=== PATIENT | male | born 1935 | race Native Hawaiian/Other Pacific Islander ===

== ENCOUNTER 2016-08-02 12:05 | Inpatient (IN) | payer OTHER ==
[~2016-08-02] VITALS: Ht 165.1 cm; Wt 69.4 kg
[~2016-08-02 12:05] MED LIST: ASA LOW STR81 MG PO; CLONIDINE0.2 MG PO; HYZAAR1 TA2 PO; SIMV20TA2 PO
[2016-08-02 13:57] VITALS: BP 174/80; TEMP 98.2; Ht 165.1 cm; Wt 69.4 kg
[2016-08-02] MEDS ORDERED: CLONIDINE HCL0.1 MG PO (14:10)
[2016-08-02 14:32] LABS: PLATELET COUNT 347 K/uL (142-355)
[2016-08-02 14:43] LABS: POTASSIUM 2.8 mmol/L (3.6-5.2)
[2016-08-02 16:00] VITALS: BP 194/84; TEMP 97.9
[2016-08-02 20:00] VITALS: BP 208/96; TEMP 98.8
[2016-08-02 22:06] VITALS: BP 192/91
[2016-08-03] VITALS: BP 189/90; TEMP 98.8
[2016-08-03 05:18] LABS: POTASSIUM 3.6 mmol/L (3.6-5.2); SODIUM 131 mmol/L (136-145)
[2016-08-03 05:29] VITALS: BP 180/84; TEMP 98.8
[2016-08-03 05:38] LABS: PLATELET COUNT 303 K/uL (142-355)
[2016-08-03 08:00] VITALS: BP 188/90; TEMP 98.1
[2016-08-03 12:00] VITALS: BP 181/76; TEMP 97.9
[2016-08-03 16:00] VITALS: BP 190/88; TEMP 97.3
[2016-08-03 20:00] VITALS: BP 200/110; TEMP 98.2
== END 2016-08-04 00:25 | disposition short-term general hospital (02) | DRG 603 ==
LOC: MED/SURG 12:05
PROVIDERS: Emergency Medicine; ADMIT Internal Medicine
DX: L03.113 Cellulitis of right upper limb (principal); I10 Essential (primary) hypertension; M65.841 Other synovitis and tenosynovitis, right hand; Z85.46 Personal history of malignant neoplasm of prostate
CPT/HCPCS: 36415; 80053; 85027; 85379; 85651; 86140; 90471; 90715; A9576; J1644

== ENCOUNTER 2016-08-04 00:31 | Outpatient (CLI) | payer OTHER ==
[~2016-08-04 00:31] MED LIST changes: +CLONIDINE HCL0.1 MG PO
== END 2016-08-04 02:32 | disposition short-term general hospital (02) ==
LOC: AMB 00:31
DX: L03.113 Cellulitis of right upper limb (principal); I10 Essential (primary) hypertension; Z85.46 Personal history of malignant neoplasm of prostate
CPT/HCPCS: A0425; A0427

== ENCOUNTER 2018-08-21 12:27 | Emergency (ER) | payer OTHER ==
[~2018-08-21] VITALS: Ht 165.1 cm; Wt 70.3 kg
[2018-08-21] MEDS ORDERED: CARV25TA PO (13:12)
[2018-08-21] MEDS ORDERED: COZAAR100 MG PO (13:13)
[2018-08-21] MEDS ORDERED: AMLODIPINE BESYLATE PO (13:13)
[2018-08-21 14:10] LABS: PLATELET COUNT 249 K/uL (142-355)
[2018-08-21 14:13] LABS: POTASSIUM 4.5 mmol/L (3.6-5.2)
[2018-08-21 14:26] LABS: PARTIAL THROMBOPLASTIN TIME 23.9 SECONDS (24.5-33.6)
[2018-08-21 15:30] VITALS: BP 158/76; TEMP 97.9
== END 2018-08-21 15:30 | disposition short-term general hospital (02) ==
LOC: ED 12:27
PROVIDERS: Emergency Medicine
DX: R33.8 Other retention of urine (principal); R79.1 Abnormal coagulation profile
CPT/HCPCS: 36415; 51702; 80053; 85027; 85610; 85730; 99283

== ENCOUNTER 2018-08-21 15:44 | Outpatient (CLI) | payer OTHER ==
[~2018-08-21 15:44] MED LIST changes: +AMLODIPINE BESYLATE PO; +CARV25TA PO; +COZAAR100 MG PO
== END 2018-08-21 17:12 | disposition short-term general hospital (02) ==
LOC: AMB 15:44
DX: R33.8 Other retention of urine (principal); N13.8 Other obstructive and reflux uropathy
CPT/HCPCS: A0425; A0427

== ENCOUNTER 2019-08-30 14:17 | Inpatient (IN) | payer OTHER ==
[~2019-08-30] VITALS: Ht 162.6 cm; Wt 71.9 kg
[2019-08-30 14:17] VITALS: BP 103/41; TEMP 98.4
[2019-08-30 14:52] LABS: PLATELET COUNT 204 K/uL (142-355)
[2019-08-30 15:00] LABS: POTASSIUM 4.5 mmol/L (3.6-5.2)
[2019-08-30 15:13] LABS: PARTIAL THROMBOPLASTIN TIME 29.5 SECONDS (24.5-33.6)
[2019-08-30 15:40] VITALS: BP 101/76
[2019-08-30 16:15] VITALS: BP 99/64
[2019-08-30] MEDS ORDERED: ASA LOW DOSE81 MG PO (16:39)
[2019-08-30 17:10] VITALS: BP 108/40
[2019-08-30 18:32] VITALS: BP 102/40; TEMP 97.9; Ht 162.6 cm; Wt 71.9 kg
[2019-08-30] MEDS ORDERED: ONE DAILY 5050 PLUS PO (18:32)
[2019-08-30 20:00] VITALS: BP 105/36; TEMP 97.8
[2019-08-31] VITALS: BP 113/49; TEMP 98.2
[2019-08-31 04:00] VITALS: BP 100/34; TEMP 99.5
[2019-08-31 05:54] LABS: PLATELET COUNT 183 K/uL (142-355)
[2019-08-31 06:09] LABS: POTASSIUM 4.1 mmol/L (3.6-5.2)
[2019-08-31 08:09] VITALS: BP 120/56; TEMP 98
[2019-08-31 12:01] VITALS: BP 102/61; TEMP 98.3
[2019-08-31 16:25] VITALS: BP 114/45; TEMP 98.2
[2019-08-31 20:00] VITALS: BP 132/76; TEMP 98.8
[2019-09-01] VITALS (7 sets, daily range): BP systolic 115–145; BP diastolic 42–86; TEMP 97.7–98.8
[2019-09-01 05:56] LABS: POTASSIUM 3.9 mmol/L (3.6-5.2)
[2019-09-01 06:13] LABS: PLATELET COUNT 207 K/uL (142-355)
[2019-09-02 03:56] VITALS: BP 124/59; TEMP 98.6
[2019-09-02 06:36] LABS: PLATELET COUNT 233 K/uL (142-355)
[2019-09-02 08:00] VITALS: BP 120/47; TEMP 98.1
[2019-09-02 12:00] VITALS: BP 133/53; TEMP 97.9
[2019-09-02 16:00] VITALS: BP 125/56; TEMP 97.9
[2019-09-02 20:00] VITALS: BP 117/51; TEMP 97.9
[2019-09-03] VITALS: BP 118/47; TEMP 98.7
[2019-09-03 04:00] VITALS: BP 128/42; TEMP 98
[2019-09-03 05:42] LABS: PLATELET COUNT 275 K/uL (142-355)
[2019-09-03 05:51] LABS: POTASSIUM 3.7 mmol/L (3.6-5.2)
[2019-09-03 08:00] VITALS: BP 124/57; TEMP 98.7
[2019-09-03 12:00] VITALS: BP 116/40; TEMP 97.9
[2019-09-03 16:00] VITALS: BP 115/45; TEMP 98.1
[2019-09-03 20:24] VITALS: BP 127/51; TEMP 98.3
[2019-09-04] VITALS: BP 136/56; TEMP 98.8
[2019-09-04 04:00] VITALS: BP 148/54; TEMP 98.4
[2019-09-04 08:00] VITALS: BP 149/68; TEMP 97.9
[2019-09-04 09:31] LABS: POTASSIUM 3.9 mmol/L (3.6-5.2)
[2019-09-04 09:52] LABS: PLATELET COUNT 274 K/uL (142-355)
[2019-09-04 12:00] VITALS: BP 141/56; TEMP 98.2
[2019-09-04 16:00] VITALS: BP 159/67; TEMP 97.4
[2019-09-04 20:00] VITALS: BP 142/46; TEMP 98.3
[2019-09-05] VITALS: BP 144/49; TEMP 98.5
[2019-09-05 04:00] VITALS: BP 145/52; TEMP 98.8
[2019-09-05 05:46] LABS: POTASSIUM 3.7 mmol/L (3.6-5.2)
[2019-09-05 06:01] LABS: PLATELET COUNT 279 K/uL (142-355)
[2019-09-05 08:04] VITALS: BP 164/59; TEMP 98.1
[2019-09-05 12:09] VITALS: BP 160/56; TEMP 98.1
[2019-09-05 16:08] VITALS: BP 159/70; TEMP 97.7
[2019-09-05 20:00] VITALS: BP 153/78; TEMP 98.1
[2019-09-06] VITALS: BP 164/57; TEMP 98.2
[2019-09-06 04:00] VITALS: BP 163/58; TEMP 98.8
[2019-09-06 04:58] LABS: POTASSIUM 3.9 mmol/L (3.6-5.2)
[2019-09-06 05:10] LABS: PLATELET COUNT 311 K/uL (142-355)
[2019-09-06 08:00] VITALS: BP 141/71; TEMP 98.5
[2019-09-06 12:00] VITALS: BP 172/69; TEMP 98.5
[2019-09-06 16:41] VITALS: BP 166/70; TEMP 98.5
[2019-09-06 20:00] VITALS: BP 174/82; TEMP 98.1
[2019-09-07] VITALS: BP 138/62; BP 181/78; TEMP 97.4; TEMP 98.8
[2019-09-07 05:00] VITALS: BP 174/82; TEMP 98.8
[2019-09-07 05:38] LABS: PLATELET COUNT 274 K/uL (142-355)
[2019-09-07 05:46] LABS: POTASSIUM 3.5 mmol/L (3.6-5.2)
[2019-09-07 08:20] VITALS: BP 160/68; TEMP 98.1
[2019-09-07 12:08] VITALS: BP 167/73; TEMP 98.3
[2019-09-07 16:09] VITALS: BP 175/69; TEMP 98.2
[2019-09-07 20:00] VITALS: BP 137/59; TEMP 98.3
[2019-09-08] VITALS: BP 138/62; TEMP 97.4
[2019-09-08 04:00] VITALS: BP 144/61; TEMP 97.7
[2019-09-08 06:11] LABS: PLATELET COUNT 275 K/uL (142-355)
[2019-09-08 06:22] LABS: POTASSIUM 3.1 mmol/L (3.6-5.2)
[2019-09-08 08:00] VITALS: BP 158/72; TEMP 97.8
[2019-09-08] MEDS ORDERED: HYDR5TAB9 PO (12:00)
[2019-09-08] MEDS ORDERED: LEVAQUIN 500MG TAB PO (12:01)
[2019-09-08] MEDS ORDERED: CARV12.5 PO (12:02)
[2019-09-08] MEDS ORDERED: LOSA50TA PO (12:03)
[2019-09-08 12:05] VITALS: BP 164/70; TEMP 97.9
[2019-09-08] MEDS ORDERED: VANCOCIN HCL125 MG PO (12:13)
[2019-09-08 16:00] VITALS: BP 153/72; TEMP 98
== END 2019-09-09 00:08 | disposition home or self-care (01) | DRG 542 ==
LOC: ED 14:21 → MED/SURG 16:00 → UNDODEPER 08-31 17:22 → MED/SURG 09-09 00:08
PROVIDERS: Hospitalist; Internal Medicine Endocrinology, Diabetes & Metabolism; ADMIT Internal Medicine
DX: M84.58XA Pathological fracture in neoplastic disease, other specified site, initial encounter for fracture (principal); G92 Toxic encephalopathy; C79.51 Secondary malignant neoplasm of bone; E87.1 Hypo-osmolality and hyponatremia; E44.0 Moderate protein-calorie malnutrition; N30.01 Acute cystitis with hematuria; N18.4 Chronic kidney disease, stage 4 (severe); N17.8 Other acute kidney failure; A04.72 Enterocolitis due to Clostridium difficile, not specified as recurrent; R78.81 Bacteremia; W18.39XA Other fall on same level, initial encounter; Z91.81 History of falling; Y92.89 Other specified places as the place of occurrence of the external cause; K40.90 Unilateral inguinal hernia, without obstruction or gangrene, not specified as recurrent; R60.1 Generalized edema; E83.51 Hypocalcemia; R74.8 Abnormal levels of other serum enzymes; I95.89 Other hypotension; R00.1 Bradycardia, unspecified; F03.90 Unspecified dementia, unspecified severity, without behavioral disturbance, psychotic disturbance, mood disturbance, and anxiety; D63.8 Anemia in other chronic diseases classified elsewhere; E88.09 Other disorders of plasma-protein metabolism, not elsewhere classified; I12.9 Hypertensive chronic kidney disease with stage 1 through stage 4 chronic kidney disease, or unspecified chronic kidney disease; B95.61 Methicillin susceptible Staphylococcus aureus infection as the cause of diseases classified elsewhere
CPT/HCPCS: 36415; 51702; 80048; 80053; 80320; 81000; 82550; 82570; 82948; 83880; 84134; 84300; 84443; 84484; 85007; 85027; 85610; 85730; 87040; 87077; 87086; 87088; 87185; 87186; 87205; 87324; 87449; 87502; 87651; 93005; 94760; 96360; 96365; 96366; 96367; 96372; 96375; 99284; J0360; J0610; J0696; J1650; J1815; J1885; J1940